=== PATIENT | male | born 1970 | race Caucasian/White ===

== ENCOUNTER 2024-09-06 09:00 | Emergency (ER) | payer BC ==
[~2024-09-06] VITALS: Ht 167.6 cm; Wt 95.5 kg
[~2024-09-06 09:00] MED LIST: LEVO175T52 PO; NORCO10T PO
[2024-09-06 09:07] VITALS: BP 153/96; PULSE 117; RESP 20; TEMP 98.4; O2SAT 97
--- NOTE | 2024-09-06 09:25 | Physician Documentation ---
History of Present Illness ~ Chief Complaint: Bite-animal Stated Complaint: CAT BITE Time Seen by MD: 09:20 Primary Medical Doctor: Denies PCP Source: patient Mode of Arrival: POV Exam Limitations: no limitations HPI 54-year-old male has a cat that likes to sneak attack his legs and he received a bite wound to the right lower extremity that got infected few days ago. No fevers just pain with palpation of the [place] concerned because he is going on vacation. Cat is indoor cat with vaccines Tetanus within 5 years?: Yes Medication Reconciliation Allergies: Coded Allergies: No Known Allergies (Unverified , 09/06/24) Scheduled Amox Tr/Potassium Clavulanate (Augmentin 875-125 Tablet), 1 TAB PO Q12H Levothyroxine Sodium* (Synthroid*), 175 MCG PO DAILY, (Reported) Scheduled PRN Hydrocodone Bit/Acetaminophen 10/325 MG* ([place] 10/325 MG*), 1 TAB PO Q4H PRN for pain, (Reported) Past Medical History Past Medical History: No Pertinent History, Thyroid (unspecified), MRSA Abscess Past Surgical History: abdominal surgery, appendectomy Alcohol Use: Occasionally Drug Use: none Lives with: Family Lives In: Home Occupation: employed Review of Systems All Other Systems at this time: Reviewed and Negative Integumentary: Reports: see HPI Physical Exam Vital Signs: RN Vital Signs have been reviewed: Yes, Temperature: 98.4, Source: Oral, Heart Rate: 117, Respiratory Rate: 20, BP: 153/96, Pulse Oximetry: 97, Weight: 95.500 Oxygen Flow Rate: 0 Physical Exam General: Alert, no apparent distress. HEENT: PERRL, EOMI, no injection, moist mucous membranes. Neck: Full range of motion. Respiratory: Lungs clear, no respiratory distress. Chest: No accessory muscle use. Cardiovascular: Regular rate and rhythm, no murmurs. Extremities: Normal range of motion, no deformity. Neurologic: Oriented x4. Psychiatric: Normal mood and affect. Skin: Slight warmth and swelling along with 1 puncture wound to the right anderson no drainage no significant induration no fluctuance Progress Results/Orders Results/Orders Vital Signs 09/06/24 09:07 Temp 98.4 Pulse 117 Resp 20 B/P (MAP) 153/96 Pulse Ox 97 O2 Flow Rate 0 Medical Decision Making Findings Bitten by her own cat patient discharged with antibiotics follow up with the primary Departure Time of Disposition: 09:24 Disposition: 01 HOME / SELF CARE / HOMELESS Impression: Primary Impression: Cat bite Condition: Stable Discharge Instructions: Animal Bite, Adult Additional Instructions: Antibiotics as prescribed warm compress for comfort. Tylenol ibuprofen as needed for [id number] pain follow up with primary care Referrals: NO PRIMARY CARE PROVIDER (PCP) Prescriptions Amox Tr/Potassium Clavulanate (Augmentin 875-125 Tablet) 1 Each Tablet 1 TAB PO Q12H for 10 Days, #20 TAB Prov: JEANNETTE ROJO NP 09/06/24 Education Educated: Patient Educated regarding: diagnosis, treatment, need for follow up Signature Scribe Signature: No Scribe Attestation: The note accurately reflects work and decisions made by me.Jeannette Rojo - [employer] 09/06/24 09:29 JEANNETTE ROJO NP Sep 06, 2024 09:25
[2024-09-06] MEDS ORDERED: AMOX-117 PO (09:29)
== END 2024-09-06 09:45 | disposition home or self-care (01) ==
LOC: ER 09:01
DX: S81.831A Puncture wound without foreign body, right lower leg, initial encounter (principal); Z90.49 Acquired absence of other specified parts of digestive tract; Z79.899 Other long term (current) drug therapy; Z72.89 Other problems related to lifestyle; W55.01XA Bitten by cat, initial encounter; Y93.89 Activity, other specified; Y92.89 Other specified places as the place of occurrence of the external cause; Y99.8 Other external cause status
CPT/HCPCS: 99283